=== PATIENT | male | born 1955 | race Caucasian/White ===

== ENCOUNTER 2018-07-04 13:56 | Day surgery (SDC) | payer OTHER ==
[2018-07-03 09:20] LABS: ALANINE AMINOTRANSFERASE 36 U/L (12-78); ALBUMIN 3.9 g/dL (3.4-5.0); ANION GAP 7 mmol/L (5-15); CALCIUM 8.9 mg/dL (8.5-10.1); CHLORIDE 106 mmol/L (98-107); CREATININE 1.26 mg/dL (0.7-1.3)
[2018-07-03 09:23] LABS: ALKALINE PHOSPHATASE 79 U/L (45-117); BILIRUBIN,TOTAL 0.6 mg/dL (0.2-1.0); TOTAL PROTEIN 6.9 g/dL (6.4-8.2)
[~2018-07-04] VITALS: Ht 175.3 cm; Wt 141.8 kg
[~2018-07-04 13:56] MED LIST: ALLO300T PO; ASPI-496 PO; ATEN25TA PO; ATOR-2 PO; BUPIVACAINE/PF 0.5% ONE; CHOL200024 PO; CYAN50008 PO; LIDOCAINE 1%, 20ML ONE; LISI-170 PO; METF500T17 PO; OMEP20TA62 PO
[2018-07-04 14:10] VITALS: BP 146/87
[2018-07-04] MEDS ORDERED: LACTATED RINGERS 1,000 ML IV SCH (14:26)
[2018-07-04] MEDS ORDERED: ONDANSETRON 2MG/ML, 2ML IV PRN (14:30)
[2018-07-04] MEDS ORDERED: OXYcodone 5 MG/5 ML ORAL.SOL UDC PO PRN (14:30)
[2018-07-04] MEDS ORDERED: ACETAMINOPHEN 325 MG TABLET PO PRN (14:30)
[2018-07-04] MEDS ORDERED: hydrALAzine 20 MG/ML, 1ML IV PRN (14:30)
[2018-07-04] MEDS ORDERED: FENTANYL PF 100 MCG/2ML IV PRN (14:30)
[2018-07-04] MEDS ORDERED: LABETALOL 5MG/ML, 20ML IV PRN (14:30)
[2018-07-04] MEDS ORDERED: PROMETHAZINE 25 MG/ML, 1ML IV PRN (14:30)
[2018-07-04] MEDS ORDERED: MEPERIDINE/PF 25MG/0.5ML IVPush PRN (14:30)
[2018-07-04] MEDS ORDERED: HYDROmorphone 2 MG/ML, 1ML IVPush PRN (14:30)
[2018-07-04] MEDS ORDERED: MIDAZOLAM 1 MG/ML, 2ML ONE (14:43)
[2018-07-04] MEDS ORDERED: FENTANYL PF 250 MCG/5ML ONE (14:43)
[2018-07-04] MEDS ORDERED: CEFAZOLIN 1,000 MG ONE ×2 (15:15)
[2018-07-04] MEDS ORDERED: PROPOFOL 10 MG/ML, 20ML ONE (15:15)
[2018-07-04] MEDS ORDERED: SUCCINYLCHOLINE 20 MG/ML, 10ML ONE (15:18)
[2018-07-04] MEDS ORDERED: ROCURONIUM 10MG/ML,5ML ONE (15:26)
[2018-07-04] MEDS ORDERED: DEXAMETHASONE 4 MG/ML, 1ML ONE (15:37)
[2018-07-04] MEDS ORDERED: ONDANSETRON 2MG/ML, 2ML ONE (15:44)
== END 2018-07-04 18:00 | disposition home or self-care (01) ==
LOC: OR 13:56
PROVIDERS: ATTEND Orthopaedic Surgery
DX: G56.03 Carpal tunnel syndrome, bilateral upper limbs (principal); M65.331 Trigger finger, right middle finger; I25.10 Atherosclerotic heart disease of native coronary artery without angina pectoris; E11.9 Type 2 diabetes mellitus without complications; Z79.899 Other long term (current) drug therapy; I10 Essential (primary) hypertension
CPT/HCPCS: 26055; 29848; 36415; 80053; 82962; J0330; J0690; J1100; J2250; J2405; J2704; J3010; J3490; J7120